=== PATIENT | female | born 1975 | race Caucasian/White ===

== ENCOUNTER 2017-02-26 07:10 | Day surgery (SDC) | payer OTHER ==
[~2017-02-26] VITALS: Ht 167.6 cm; Wt 68.0 kg
[~2017-02-26 07:10] MED LIST: 0.9% Sodium Chloride 1,000 ML IV SCH; QUE9 PO; Sodium Chloride LOK Flush 10 mL Syringe IV PRN; fentaNYL-PF 50 mCg/mL 2 mL Inj IVPUSH PRN
[2017-02-26 07:30] VITALS: BP 119/83; PULSE 61; RESP 16; O2SAT 100
[2017-02-26 08:27] VITALS: BP 121/79; PULSE 70; RESP 12; O2SAT 97
[2017-02-26 08:37] VITALS: BP 97/66; PULSE 65; RESP 12; O2SAT 100
[2017-02-26 08:47] VITALS: BP 101/68; PULSE 61; RESP 12; O2SAT 100
[2017-02-26 08:57] VITALS: BP 107/75; PULSE 53; RESP 16; O2SAT 100
--- NOTE | 2017-02-27 06:00 | ENDO ---
[address] [address] ENDOSCOPY PROCEDURE PATIENT: SHAMA BOWERS : 1975 MR#: [id number] ADMIT: 02/26/2017 JOB ID: [id number] DATE OF SERVICE: 02/26/2017 OPERATION: 1. Esophagogastroduodenoscopy with biopsy. 2. Colonoscopy with biopsy. PREOPERATIVE DIAGNOSIS(ES): 1. Nausea and vomiting. 2. Upper quadrant pain. 3. Diarrhea. POSTOPERATIVE DIAGNOSIS(ES): 1. Mild nonerosive gastritis status post biopsy. 2. Normal colonoscopy status post biopsy. ANESTHESIA: Fentanyl 125 mcg and Versed 6 mg IV administered. COMPLICATION: None. BLOOD LOSS: Minimal. DESCRIPTION OF PROCEDURE: After risks and benefits explained to the patient, informed consent was obtained. After anesthesia administered, upper endoscope was inserted in the mouth intubating to the esophagus, stomach, second portion of duodenum. Mucosa carefully examined. After the procedure was done, the scope was withdrawn and the procedure terminated. A colonoscope was inserted from the rectum to the cecum. Mucosa carefully examined. The prep of the patient was excellent. After the procedure was done, the scope was withdrawn and the procedure terminated. FINDINGS: Upon inspection of the esophagus, esophagus was normal without masses, ulcers, or lesions. Z-line located at 40 cm from incisors. Upon entering stomach, there showed mild nonerosive gastritis. No masses, ulcers, or lesions were seen. Retroflexion was normal. Duodenal bulb, first and second portions were normal. Biopsies taken to duodenum and antrum body of stomach. Upon inspection of the anus, no masses, hemorrhoids, ulcers, or fissures that were seen. Throughout the entire examination, there were no polyps, masses, or lesions. Biopsies taken from the terminal ileum and around the colon. Retroflexion was normal. IMPRESSIONS: 1. Mild nonerosive gastritis status post biopsy. 2. Normal colonoscopy status post biopsy. RECOMMENDATION: 1. Await pathology results. Follow up with referring provider as an outpatient in GI Clinic. 2. Consider outpatient gastric emptying study for her nausea and vomiting. [facility] CENTERChristophe
--- NOTE | 2017-03-01 12:35 | PATH ---
SURGICAL PATHOLOGY Attending Physician:Florian Ferreira MD CASE STATUS: Signed Out PATIENT NAME: SHAMA BOWERS PID: [id number] : 1975 DATE COLLECTED:02/26/2017 16:32 SPECIMEN: 1: Duodenum, Biopsy 2: Stomach, Antrum, Biopsy 3: Gastric, Biopsy 4: Small Intestine/Bowel, Biopsy 5: Colon, Biopsy CLINICAL HISTORY: 1. DUODENAL BXS 2. ANTRUM BXS 3. GASTRIC BODY BXS 4. TI BXS 5. RANDOM COLON BXS FINAL DIAGNOSIS: 1.DUODENAL BIOPSIES: FRAGMENTS OF NORMAL-APPEARING SMALL BOWEL MUCOSA. Normal delicate mucosal villi present. Negative for significant inflammation, dysplasia and malignancy. 2.GASTRIC ANTRUM BIOPSIES: ANTRAL MUCOSA WITH SUPERFICIAL HYPEREMIA WITHOUT ASSOCIATED SIGNIFICANT INFLAMMATION. Negative for evidence of Helicobacter. Negative for intestinal metaplasia. Negative for dysplasia and malignancy. 3.GASTRIC BODY BIOPSIES: FUNDIC MUCOSA WITH MUCOSAL HYPEREMIA WITHOUT ASSOCIATED SIGNIFICANT INFLAMMATION. Negative for evidence of Helicobacter. Negative for intestinal metaplasia. Negative for dysplasia and malignancy. 4.TERMINAL ILEUM BIOPSIES: FRAGMENTS OF NORMAL-APPEARING TERMINAL ILEUM MUCOSA. Negative for granulomas. Negative for significant inflammation, dysplasia and malignancy. 5.RANDOM COLON BIOPSIES: FRAGMENTS OF NORMAL-APPEARING COLON MUCOSA. Negative for significant architectural distortion. Negative for significant inflammation, dysplasia and malignancy. ICD10 code R19.7 GROSS DESCRIPTION: The specimen is received in five formalin filled containers labeled with the patient's name. 1). The specimen is sublabeled "duodenal" and consists of 2 portions of tissue which aggregate to 0.5 x 0.3 x 0.2 CM. The specimen is entirely submitted in cassette 1A. 2). The specimen is sublabeled "antrum" and consists of a 0.1 x 0.1 x 0.1 CM portion of tissue which is entirely submitted in cassette 2A. 3). The specimen is sublabeled "gastric body" and consists of 2 portions of tissue which aggregate to 0.4 x 0.3 x 0.2 CM. The specimen is entirely submitted in cassette 3A. 4). The specimen is sublabeled "TI" and consists of a 0.3 x 0.3 x 0.3 CM portion of tissue which is entirely submitted in cassette 4A. 5). The specimen is sublabeled "random colon" and consists of multiple portions of tissue which aggregate to 0.5 x 0.5 x 0.3 CM. The specimen is entirely submitted in cassette 5A. 02/26/2017 DAC MICRO DESCRIPTION: See diagnosis. ICD-9 CODES: CPT CODES: 1: 51225 2: 25690 3: 59289 4: 17281 5: 99361 Electronically Signed Out Claude Rasmussen MD [facility] Pathology [facility] [address], [place] [address] Technical component performed at [facility], [address], [place], [address]
== END 2017-02-26 23:59 | disposition home or self-care (01) ==
LOC: END 07:10
PROVIDERS: ATTEND Internal Medicine Gastroenterology
DX: R19.7 Diarrhea, unspecified (principal); K29.70 Gastritis, unspecified, without bleeding; K21.9 Gastro-esophageal reflux disease without esophagitis; K58.2 Mixed irritable bowel syndrome; R63.4 Abnormal weight loss
CPT/HCPCS: 43239; 45380; 99153; G0500; J2250; J3010; J7030